=== PATIENT | female | born 1935 | race Caucasian/White ===

== ENCOUNTER 2017-11-11 17:23 | Observation (INO) | payer OTHER ==
[~2017-11-11] VITALS: Ht 167.6 cm; Wt 77.6 kg
[2017-11-11 17:27] VITALS: BP_SYST 119
--- NOTE | 2017-11-11 17:27 | NUR ---
Patient to ER bed 08 to gown for evaluation. Side rails up. Report received from RANJITH Yoon
--- NOTE | 2017-11-11 17:27 | NUR ---
Note undone in ED - 11/11/17 at 2040 by [email or web address] Patient is brought in complaining of high blood pressure of SBP > 200 today. Patient states that she has history of HTN and anxiety. Patient has recently been detoxing from Ativan . Today was the first time she took 0.25 mg of Ativan. Denies any dizziness, headache or vision changes. Denies any nausea, vomiting or diarrhea. Denies any pain at this time. No other complaints/injuries per patient or as noted. Will continue to monitor. Patient's daughter is at bedside.
--- NOTE | 2017-11-11 17:35 | NUR ---
Patient is brought in complaining of high blood pressure of SBP > 200 today. Patient states that she has history of HTN and anxiety. Patient has recently been detoxing from Ativan . Today was the first time she took 0.25 mg of Ativan. Denies any dizziness, headache or vision changes. Denies any nausea, vomiting or diarrhea. Denies any pain at this time. No other complaints/injuries per patient or as noted. Will continue to monitor. Patient's daughter is at bedside.
--- NOTE | 2017-11-11 18:17 | NUR ---
ER at bedside examining patient.
[2017-11-11] MEDS ORDERED: DIPHENHYDRAMINE INJ 50 MG/ML VIAL IVP ONE (18:30)
[2017-11-11] MEDS ORDERED: NACL 0.9% 1,000 ML IV ONE (18:30)
--- NOTE | 2017-11-11 18:42 | NUR ---
Medicated with Benadryl per MD orders. IVF infusing with no s/s of infiltration at this time. Will cont to monitor
[2017-11-11] MEDS ORDERED: hydrALAZINE HCL 20 MG/ML VIAL IVP ONE (19:00)
--- NOTE | 2017-11-11 19:30 | NUR ---
Medicated with hydralazine per MD orders. Will cont to monitor
[2017-11-11] MEDS ORDERED: ENALAPRILAT DIHYDRATE 1.25 MG/ML VIAL IVP ONE (20:15)
[2017-11-11] MEDS ORDERED: LOVA40TA75 PO (22:13)
[2017-11-11] MEDS ORDERED: LORA-258 PO ×2 (22:13→22:17)
[2017-11-11] MEDS ORDERED: LOSA50TA3 PO (22:13)
[2017-11-11] MEDS ORDERED: GABA-531 PO (22:14)
[2017-11-11] MEDS ORDERED: METO25TA6 PO (22:14)
[2017-11-11] MEDS ORDERED: PARO40TA45 PO (22:17)
[2017-11-11] MEDS ORDERED: LEVO137T2 PO (22:17)
[2017-11-11] MEDS ORDERED: PRO40 PO (22:17)
--- NOTE | 2017-11-11 22:17 | NUR ---
Medication reconciliation completed with information provided by Daughter. Any prior medication reconciliation on file was reviewed and corrected.
--- NOTE | 2017-11-11 22:18 | NUR ---
ER at bedside re examining patient.
--- NOTE | 2017-11-11 22:22 | NUR ---
Patient states she is a Full code. Paperwork Placed in Chart.
[2017-11-11] MEDS ORDERED: ONDANSETRON HCL 4 MG/2 ML VIAL IVP PRN (23:45)
[2017-11-11] MEDS ORDERED: ENALAPRILAT DIHYDRATE 1.25 MG/ML VIAL IVP PRN (23:45)
[2017-11-11] MEDS ORDERED: LevALBUTEROL HCL 1.25 MG/0.5 ML *CONC.* VIAL.NEB (XOPENEX CONC.) INH PRN (23:45)
[2017-11-11] MEDS ORDERED: NITROGLYCERIN 0.4 MG TAB.SUBL SL ONE (23:45)
[2017-11-11] MEDS ORDERED: ACETAMINOPHEN 650 MG/20.3 ML UDC PO PRN (23:45)
--- NOTE | 2017-11-11 23:45 | NUR ---
aPatient will be admitted to care of Dr. Trevino. Admitted to Telemetry unit. Will go to room 121 A. Belongings list completed. Summary report printed. Report will be given at bedside.
[2017-11-12 00:20] VITALS: BP_SYST 141
--- NOTE | 2017-11-12 00:20 | NUR ---
ADMISSION NOTE Received patient from ER via gurney. Patient admitted with diagnosis of . Patient is awake, alert, oriented X 4. Patient oriented to hospital room, call light, toileting, pain management and safety-teach back done. Patient informed that Oscar will be her nurse and that their room number is 121A. Personal belongings checked and Belongings List documented. Call light within reach.
[2017-11-12] MEDS ORDERED: GABAPENTIN 100 MG CAPSULE PO ONE (01:00)
--- NOTE | 2017-11-12 02:20 | NUR ---
Rounds: Patient sleeping in bed. No signs or symptoms of acute distress. Bed is locked in lowest position, upper side rails raised. Call light is within patient's reach. Will continue to monitor.
--- NOTE | 2017-11-12 04:20 | NUR ---
Rounds: Patient in bed asleep. Shows no signs or symptoms of acute distress. Bed is locked in lowest position, upper side rails raised. Call light is within patient's reach. Will continue to monitor.
[2017-11-12 04:33] VITALS: BP_SYST 141
[2017-11-12] MEDS: NORMAL SALINE 5 ML DISP.SYRIN IVF SCH ×2 (06:24→15:00)
--- NOTE | 2017-11-12 06:50 | NUR ---
Closing Note: Patient is asleep in bed. No signs or symptoms of acute distress noted. Saline lock 20G on left hand patent and intact. Bed is locked in lowest position with side rails raised. Call light is within patient's reach. All needs met and attended to. Will endorse to oncoming dayshift nurse.
[2017-11-12 07:53] VITALS: BP_SYST 143
--- NOTE | 2017-11-12 08:00 | NUR ---
Note Pt resting in bed. Dr Joana Trevino came in to see pt and do assessment at 0740am. Questions/concerns were answered at this time. Pt's IV in left hand intact and patent at this time. Tele unit attached and intact at this time. Pt sitting on side of bed eating her breakfast. Pt denies any needs and states she feels good at this time. Call light within reach. Pt next to nurses' station for close observation.
[2017-11-12] MEDS ORDERED: PARoxetine HCL 20 MG TABLET PO SCH (09:00)
[2017-11-12] MEDS ORDERED: METOPROLOL TARTRATE 25 MG TABLET PO SCH (09:00)
[2017-11-12] MEDS ORDERED: GABAPENTIN 300 MG CAPSULE PO SCH (09:00)
[2017-11-12] MEDS ORDERED: LISINOPRIL 10 MG TABLET (PRINIVIL) PO SCH (09:00)
[2017-11-12] MEDS ORDERED: FAMOTIDINE 20 MG TABLET PO SCH (09:00)
[2017-11-12] MEDS ORDERED: LOSARTAN POTASSIUM 50 MG TABLET (COZAAR) PO SCH (09:00)
[2017-11-12] MEDS ORDERED: CARVEDILOL 6.25 MG TABLET (COREG) PO SCH (09:00)
[2017-11-12] MEDS ORDERED: LORazepam 1 MG TABLET PO SCH ×2 (09:00)
[2017-11-12] MEDS ORDERED: LEVOTHYROXINE SODIUM 0.137 MG TABLET PO SCH (09:00)
--- NOTE | 2017-11-12 10:15 | NUR ---
Note Pt resting in bed. Pt's daughter at bedside. Questions/concerns were answered. No needs noted at this time. Pt's casework supervisor Barbi Farley (HCP) at bedside at this time, assisting pt in discharge needs at this time. No needs noted. Call light within reach.
[2017-11-12 13:00] VITALS: BP_SYST 126
[2017-11-12 14:40] VITALS: BP_SYST 139
--- NOTE | 2017-11-12 15:00 | NUR ---
Note Pt was checked on q1' and PRN for needs and care. Pt's tele unit was dcd and returned to cardiac monitor. Left IV was dc'd and site benign. Cath intact. No swelling/redness/bleeding/drainage noted at this time. Pt and her daughter were given discharge instructions and prescription. Questions/concerns were answered at this time. Pt denies any shakiness/unsteadiness or SOB/resp distress or pain/discomfort at this time. No needs noted. Call light within reach.
--- NOTE | 2017-11-12 15:50 | NUR ---
Note Pt off the floor acc. by her 2 family members and all her belongings. Pt and her daughter checked side table and drawers for belongings and all belongings were packed and taken with pt. Pt also took discharge paperwork and prescription. Pt stable. No needs noted. No shakiness/high BP/no restlessness/agitation noted at this time.
[2017-11-12] MEDS ORDERED: PANTOPRAZOLE SODIUM 40 MG TAB PO SCH (18:00)
[2017-11-12] MEDS ORDERED: SIMVASTATIN 10 MG TABLET PO SCH (21:00)
== END 2017-11-12 15:15 | disposition home or self-care (01) ==
LOC: SED 17:23 → STU 23:37
PROVIDERS: ADMIT Internal Medicine; ATTEND Internal Medicine
DX: I16.0 Hypertensive urgency (principal); I10 Essential (primary) hypertension; F41.9 Anxiety disorder, unspecified; F32.9 Major depressive disorder, single episode, unspecified; E78.5 Hyperlipidemia, unspecified; E03.9 Hypothyroidism, unspecified
CPT/HCPCS: 93005; 96361 ×2; 96374; 96375 ×2; 99285; G0378 ×2; J0360; J1200; J7030